=== PATIENT | male | born 1995 | race Caucasian/White ===

== ENCOUNTER 2018-11-22 06:21 | Emergency (ER) | payer OTHER ==
[2018-11-22] MEDS ORDERED: predniSONE 20 MG TABLET (UD) PO STA (06:22)
[2018-11-22] MEDS: ALBUTEROL SO4 2.5/IPRATROPIUM 0.5 INH SOL 3 ML VIAL.NEB. NEB SCH ×4 (06:26→07:21)
--- NOTE | 2018-11-22 06:29 | PDOC ---
History of Present Illness - General Chief Complaint: Asthma Stated Complaint: ASTHMA Time Seen by Provider: 11/22/18 06:22 - History of Present Illness Initial Comments: 11/22/18 06:25 23 M with h/o asthma presents to ED with SOB and cough x 2 days. Pt states that he has had some chills but no fevers. Endorses sore throat with dry cough. Denies any chest pain but feels tightness and SOB that feels just like his usual asthma flares. Pt used his nebulizer this morning with no relief and came to ED for evaluation. Has had PNA in the past. Denies leg swelling, denies recent travel/immobilization. Past History - Past Medical History Allergies/Adverse Reactions: Allergies Allergy/AdvReac Type Severity Reaction Status Date / Time No Known Allergies Allergy Verified 11/11/11 12:16 Home Medications: Ambulatory Orders Albuterol [Ventolin] 17 gm IH PRN PRN 11/11/11 Anemia: No Asthma: Yes Cancer: No Cardiac Disorders: No CVA: No COPD: No CHF: No Dementia: No Diabetes: No GI Disorders: No Disorders: No HTN: No Hypercholesterolemia: No Liver Disease: No Seizures: No Thyroid Disease: No - Immunization History Immunization Up to Date: Yes - Suicide/Smoking/Psychosocial Hx Smoking Status: No Smoking History: Never smoked Number of Cigarettes Smoked Daily: 0 Hx Alcohol Use: No Drug/Substance Use Hx: No Substance Use Type: None Hx Substance Use Treatment: No Review of Systems - Review of Systems Comments:: 11/22/18 06:27 GENERAL/CONSTITUTIONAL: + chills, No fever. No weakness. HEAD, EYES, EARS, NOSE AND THROAT: No change in vision. No ear pain or discharge. No sore throat. CARDIOVASCULAR: No chest pain, no loss of consciousness RESPIRATORY: +SOB, + cough, + wheezing, or hemoptysis. GASTROINTESTINAL: No nausea, vomiting, diarrhea or constipation. GENITOURINARY: No dysuria, frequency, or change in urination. MUSCULOSKELETAL: No joint or muscle swelling or pain. No neck or back pain. SKIN: No rash NEUROLOGIC: No vertigo, no change in strength/sensation. ENDOCRINE: No increased thirst. No abnormal weight change. HEMATOLOGIC/LYMPHATIC: No anemia, easy bleeding, or history of blood clots. ALLERGIC/IMMUNOLOGIC: No hives or skin allergy. *Physical Exam - Physical Exam Comments: 11/22/18 06:28 GENERAL: Awake, alert, and fully oriented, in no acute distress. HEAD: No signs of trauma EYES: PERRLA, EOMI, sclera anicteric, conjunctiva clear ENT: Auricles normal inspection, hearing grossly normal, nares patent, oropharynx clear without exudates. Moist mucosa NECK: Nontender, no stepoffs, Normal ROM, supple, no lymphadenopathy, JVD, or masses LUNGS: + mild expiratory wheezes bilaterally HEART: Regular rate and rhythm, normal S1 and S2, no murmurs, rubs or gallops ABDOMEN: Soft, nontender, normoactive bowel sounds. No guarding, no rebound. No masses EXTREMITIES: Normal range of motion, no edema. No clubbing or cyanosis. No cords, erythema, or tenderness NEUROLOGICAL: Cranial nerves II through XII intact. 5/5 strength and sensation in all extremities, Normal speech, normal gait, normal cerebellar function SKIN: Warm, Dry, normal turgor, no rashes or lesions noted. ED Treatment Course - RADIOLOGY Radiology Studies Ordered: Category Date Time Status CHEST PA & LAT [RAD] Stat Radiology 11/22/18 06:23 Ordered Medical Decision Making - Medical Decision Making 11/22/18 06:28 23 M with SOB and cough x 2 days. Wheezing on exam. Likely asthma flare 2/2 viral URI. Pt has h/o PNA so will obtain CXR. - CXR - Nebs, steroids - Reassess *DC/Admit/Observation/Transfer - Discharge Dispostion Condition at time of disposition: Stable - Referrals - Patient Instructions - Post Discharge Activity
[2018-11-22 06:31] VITALS: BP 157/97; PULSE 106; TEMP 97.6; BMI 51.7
[2018-11-22] MEDS ORDERED: ALBUTEROL SO4 2.5/IPRATROPIUM 0.5 INH SOL 3 ML VIAL.NEB. NEB ONE (06:59)
--- NOTE | 2018-11-22 07:35 | PDOC ---
*Physical Exam - Vital Signs Last Vital Signs Temp Pulse Resp BP Pulse Ox 97.6 F 106 H 20 157/97 100 11/22/18 06:27 11/22/18 06:27 11/22/18 06:27 11/22/18 06:27 11/22/18 06:27 - Physical Exam General Appearance: Yes: Nourished, Appropriately Dressed HEENT: positive: EOMI, DEMETRIO, Normal Voice Neck: positive: Supple Respiratory/Chest: positive: Lungs Clear, Normal Breath Sounds Cardiovascular: positive: Regular Rhythm, Tachycardia. negative: Murmur Gastrointestinal/Abdominal: positive: Soft Extremity: positive: Normal Capillary Refill, Normal Inspection Integumentary: positive: Normal Color, Dry, Warm Neurologic: positive: Alert ED Treatment Course - Medications Given in the ED: ED Medications Discontinued Medications Generic Name Dose Route Start Last Admin Trade Name Freq PRN Reason Stop Dose Admin Albuterol/Ipratropium 1 amp 11/22/18 06:30 11/22/18 07:21 Duoneb - NEB 11/22/18 07:16 1 amp Q15M LANDON Administration Prednisone 50 mg 11/22/18 06:22 11/22/18 06:26 Deltasone - PO 11/22/18 06:23 50 mg ONCE STA Administration Medical Decision Making - Medical Decision Making 11/22/18 07:32 pt signed out from Dr Delgadillo at 7am pending reeval for asthma vs infection VS reviewed, wnl, no fever, nontoxic, speaking clear and full sentences. mild tachy, but also getting active neb treatments repeat exam as documented, lungs clear, no respiratory distress or wheezing CXR appears clear. normal cardiac silhouette, no infiltrate or blunting of costophrenic angles to suggest effusion or consolidation. feels clinically improved with duonebs and prednisone, breathing comfortably rx course of prednisone, albuterol use Q4-6 hr as needed for wheezing/cough/sob dispo: Pt informed of my clinical impression, treatment recommendations and disposition plan. All questions answered to patient's satisfaction and expressed understanding and comfort with this. Reasons for returning to the ED sooner discussed including new or persistent/worsening symptoms with the patient otherwise, follow up with primary care physician. At the time of discharge, the patient is alert, clinically improved, tolerating po and verbalizes understanding of instructions, satisfied with the care received and felt comfortable with the plan. Patient does not suffer from an acute life- threatening medical condition at this time he is safe for outpatient follow-up. 11/22/18 07:48 11/22/18 07:49 *DC/Admit/Observation/Transfer Diagnosis at time of Disposition: Asthma, Bronchitis - Discharge Dispostion Disposition: HOME Condition at time of disposition: Stable Decision to Admit order: No - Prescriptions Prescriptions: Prednisone [Prednisone 50 MG TABLETS] 50 mg PO DAILY #3 tablet - Referrals - Patient Instructions Printed Discharge Instructions: DI for Asthma -- Adult Additional Instructions: Take medicines as directed by your caregiver. Visit your PMD if: You have wheezing, shortness of breath, or a cough even if taking medicine to prevent attacks. You have thickening of sputum. Your sputum changes from clear or white to yellow, green, hernandez, or bloody. You have any problems that may be related to the medicines you are taking (such as a rash, itching, swelling, or trouble breathing). Visit /return to the emergency department if you develop persistent or worsening symptoms as such, despite the course of treatment with prescribed medications: You are short of breath even at rest or when doing very little physical activity. You develop difficulty eating, drinking, or talking due to asthma symptoms. You have chest pain or you feel that your heart is beating fast. You are lightheaded, dizzy, faint or have bluish lips or fingernails. You have a fever (>100.4) or persistent symptoms for more than 2-3 days or symptoms suddenly get worse. You seem to be getting worse and are unresponsive to treatment during an asthma attack. For more information on Asthma please visit the [employer]'s Website at: [email or web address] Otherwise, Please follow up with your primary care doctor within 2 days. Please fill the prescription for prednisone and take as directed. Please use the albuterol inhaler, 2 puffs every 4-6 hours as needed for 2 days and then as needed after that. Remember, technique is important: shake the inhaler, insert into spacer, breath out fully, then pump the inhaler and take several slow deep breaths through the spacer aerochamber with your mouth. Always use the spacer aerochamber whenever you use the inhaler. Please take all of your other medications as previously prescribed. If you have any worsening wheezing, shortness of breath, chest pain, fever, chills return to the ED. - Post Discharge Activity
== END 2018-11-22 07:54 | disposition home or self-care (01) ==
LOC: FER 06:21
PROC: 3E0F7GC Introduction of Other Therapeutic Substance into Respiratory Tract, Via Natural or Artificial Opening (ICD-10-PCS; principal; 2018-11-22)
DX: J40 Bronchitis, not specified as acute or chronic (principal)
CPT/HCPCS: 71046-TC-FY; 99281-25

== ENCOUNTER 2020-08-01 16:34 | Emergency (ER) | payer OTHER ==
[2020-08-01 16:38] VITALS: TEMP 97.9; BMI 51.7
[2020-08-01] MEDS ORDERED: SODIUM CHLORIDE 1,000 ML IV STA (16:43)
[2020-08-01] MEDS ORDERED: METOCLOPRAMIDE HCL INJECTION 10 MG/2 ML VIAL IVPB ONE (16:43)
[2020-08-01] MEDS ORDERED: ACETAMINOPHEN 1000 MG/100 ML VIAL (NON FORMULARY) IVPB ONE (16:43)
[2020-08-01] MEDS ORDERED: SUMAtriptan SUCCINATE 50 MG TABLET PO SCH (16:45)
[2020-08-01] MEDS ORDERED: ACETAMINOPHEN INJECTION 100 ML IVPB ONE (17:01)
[2020-08-01] MEDS ORDERED: METOCLOPRAMIDE HCL INJECTION 10 MG/2 ML VIAL ONE (17:01)
[2020-08-01 19:51] VITALS: BP 124/72; PULSE 67
== END 2020-08-01 19:51 | disposition home or self-care (01) ==
LOC: FER 16:34
PROC: 3E033NZ Introduction of Analgesics, Hypnotics, Sedatives into Peripheral Vein, Percutaneous Approach (ICD-10-PCS; principal; 2020-08-01)
PROC: 3E033GC Introduction of Other Therapeutic Substance into Peripheral Vein, Percutaneous Approach (ICD-10-PCS; 2020-08-01)
PROC: 3E0337Z Introduction of Electrolytic and Water Balance Substance into Peripheral Vein, Percutaneous Approach (ICD-10-PCS; 2020-08-01)
DX: R51.9 Headache, unspecified (principal)
CPT/HCPCS: 70450-TC; 99285-25; J0131